=== PATIENT | female | born 1995 | race African-American/Black ===

== ENCOUNTER 2017-01-03 13:55 | Emergency (ER) ==
--- NOTE | 2017-01-03 16:06 | PROVIDER DOCUMENTATION ---
HPI-Female /OB/Breast - General Chief Complaint: Female Stated Complaint: 11 WEEKS PREG/BLEEDING Time Seen by Provider: 01/03/17 15:32 Source: reports: patient Allergies/Adverse Reactions: Patient Allergies Allergy/AdvReac Type Severity Reaction Status Date / Time Penicillins AdvReac ANAPHYLAXIS Verified 01/03/17 14:15 - History of Present Illness-Female /OB Nature of Presenting Problem: 21 y/o BF c/o vaginal bleeding x 1 day. Pt states that she started bleeding early this morning and has filled up 3-4 pads. States that the bleeding has subsided and now only notes small amount of blood when she wipes. States no new abd. pain; has noted mild cramping in suprapubic region over last 3 weeks. States 11w+5 and is being seen by Dr. Lemus. Has had US with no abnormalities. Denies abd. pain, urinary sxs, N/V/d/c. Review of Systems - Adult - REVIEW OF SYSTEMS - ADULT Constitutional: reports: no symptoms reported. denies: chills, fever Eyes: reports: no symptoms reported. denies: blurred vision, double vision Ears, Nose, Mouth & Throat: reports: no symptoms reported. denies: ear pain, nose pain Cardiovascular: reports: no symptoms reported. denies: chest pain, palpitations Respiratory: reports: no symptoms reported. denies: dyspnea on exertion, shortness of breath Gastrointestinal: reports: no symptoms reported. denies: abdominal pain, nausea , vomiting Genitourinary: reports: see HPI, other. denies: dysuria, frequency Musculoskeletal: reports: no symptoms reported. denies: joint pain, joint swelling Integumentary: reports: no symptoms reported. denies: nail changes, rash Neurological: reports: no symptoms reported. denies: numbness, paresthesia Psychiatric: reports: no symptoms reported Endocrine: reports: no symptoms reported. denies: cold intolerance, heat intolerance Hematologic/Lymphatic: reports: no symptoms reported. denies: easy bruising, prolonged bleeding Allergic/Immunologic: reports: no symptoms reported All Other Systems: Reviewed and Negative Past History - Adult - PAST MEDICAL HISTORY-ADULT Review of Records: reports: Nursing Assessment Review, Medications Reviewed Major Childhood Illnesses: reports: denies history Cardiovascular: reports: denies history Respiratory: reports: denies history Gastrointestinal: reports: denies history Genitourinary: reports: denies history Musculoskeletal: reports: denies history Neurological: reports: denies history Psychiatric: reports: denies history Endocrine/Immune: reports: denies history - PRIOR SURGERIES/PROCEDURES Surgical/Procedure History: reports: none - FAMILY HISTORY Family History: reviewed, not pertinent - SOCIAL HISTORY Smoking: denies Alcohol Use Frequency: never Physical Exam-General - PHYSICAL EXAM-ADULT Initial Vital Signs Reviewed: Yes - CONSTITUTIONAL General Appearance: alert, mild distress, anxious - EYES Eyes: pink conjunctivae - HEAD, EARS, NOSE, MOUTH & THROAT HENMT: normocephalic/atraumatic - NECK Neck: supple, normal inspection - RESPIRATORY Respiratory: lungs clear, normal breath sounds. negative: crackles, rales, rhonchi, stridor, wheezing - CARDIOVASCULAR Cardiovascular: regular rate, rhythm. negative: bradycardia, tachycardia - GASTROINTESTINAL (ABDOMEN) Abdominal Exam: normal bowel sounds, non tender, soft. negative: distended, guarding, rigid, rebound - MUSCULOSKELETAL Back Exam: no CVA tenderness Extremity: normal range of motion, normal inspection - SKIN Integumentary: normal color, normal turgor, warm/dry - NEUROLOGIC Neurologic: negative: aphasia - PSYCHIATRIC Psych/Mental Status: normal mood/affect, normal thought content, normal thought process, oriented x 3 Progress - PLAN OF CARE/RESULTS Progress/Plan/Lab Results: Discussed pt with Dr. Landry; he agreed with d/c plan after reviewing labwork. States no need for US. Discussed results with pt and f/u with Dr. Lemus. Departure - Departure Time of Disposition Order: 17:25 DIAGNOSIS: Threatened in first trimester, Vaginal bleeding Disposition: HOME 01 Certified Medical Emergency: Emergent Condition: Stable Additional Instructions: Follow up with Dr. Lemus for recheck in 24-48 hours. Return if changing pad more than once an hour or if abdominal pain occurs. ED Follow Up Instructions: You have been treated by a care provider in the Emergency Department. These instructions are being provided to you so you can have an understanding of how to care for yourself upon discharge. Upon discharge from the Emergency Department, you are responsible for making arrangements for follow-up care by a physician of your choice. Take all prescribed medications as directed. Return to the Emergency Department immediately for any new or worsening symptoms. You may call the Physician Referral phone number at [phone] to obtain a list of Physicians who are taking new patients. Referrals: Elizabeth Lemus MD [Primary Care Provider] - Attestation - Physician/ AARON Attestation Patient care was provided by Advanced Practice Provider:: Yes Advanced Practice Provider:: Niecy Long Advanced Practice Provider documentation review:: The Mid-level provider documentation, treatment plan and medical decision making was reviewed by the physician who agrees with all treatment and medical decision making by the MLP.
[2017-01-03 16:12] LABS: MANUAL DIFF NEEDED? NO
[2017-01-03 16:25] LABS: BASO% 0.1 % (0.0-0.8); EOS# 0.06 X1000 (0.0-0.7); EOS% 0.8 % (0.0-10.0); HEMATOCRIT 37.5 % (37.0-47.0); IMM GRAN# 0.02 X1000 (0.0-0.04); IMM GRAN% 0.3 % (0.0-0.5); LYMPH# 1.41 X1000 (1.2-3.4); LYMPH% 19.8 % (20.5-51.1); MCH 29.6 PG (27-31); MCHC 34.7 g/dL (33-37); MCV 85.4 FL (81-99); MONO# 0.42 X1000 (0.11-0.59); MONO% 5.9 % (1.7-9.3); MPV 10.3 FL (7.4-10.4); NEUT% 73.1 % (42.2-75.2); PLT 193 X1000 (130-400); RBC 4.39 XMIL (4.2-5.4)
[2017-01-03 16:26] LABS: URINE SOURCE CLEAN CATCH
[2017-01-03 16:33] LABS: AGAP 13; ALBUMIN 4.1 g/dL (3.5-5.0); ALKALINE PHOSPHATASE 50 U/L (32-104); AMYLASE 111 U/L (20-200); BUN 8 mg/dL (8-22); CALCIUM 10.1 mg/dL (8.8-10.2); CHLORIDE 97 mmol/L (98-107); COSMO 261; GOT 22 U/L (10-30); GPT 9 U/L (10-36); LIPASE 27 U/L (13-60); POTASSIUM 3.3 mmol/L (3.5-5.1); SODIUM 132 mmol/L (136-145); TCO2 22 mmol/L (25-35); TOTAL PROTEIN 7.9 g/dL (6.3-8.3)
[2017-01-03 16:38] LABS: BILIRUBIN URINE NEGATIVE (NEGATIVE); BLOOD URINE 2+ (NEGATIVE); CLARITY SL. CLOUDY (CLEAR); COLOR YELLOW; LEUKOCYTES URINE 1+ (NEGATIVE); NITRITE URINE NEGATIVE (NEGATIVE); PROTEIN URINE TRACE mg/dL (NEGATIVE); UROBILINOGEN URINE 1+(1 mg/dL)
[2017-01-03 16:42] LABS: URINE CULTURE PL NEEDED? YES; URINE EPITHELIAL CELLS >10 /HPF (<10); URINE RBC <10 /HPF (<10); URINE WBC <10 /HPF (<10)
[2017-01-03 16:43] LABS: URINE CAST NONE SEEN /LPF; URINE CRYSTAL NONE SEEN /HPF
[2017-01-03 18:14] VITALS: BP 149/88
== END 2017-01-03 18:00 | disposition home or self-care (01) ==
LOC: P.ED 13:55
DX: O20.0 Threatened abortion (principal); O46.91 Antepartum hemorrhage, unspecified, first trimester; O26.891 Other specified pregnancy related conditions, first trimester; R10.9 Unspecified abdominal pain; Z3A.11 11 weeks gestation of pregnancy
CPT/HCPCS: 80053; 81001; 82150; 83690; 84702; 85025; 86900; 86901; 87088; 99283